=== PATIENT | male | born 2005 | race African-American/Black ===

== ENCOUNTER 2025-08-05 12:06 | Emergency (ER) | payer MEDICAID, SELFPAY ==
--- NOTE | ~2025-08-05 | XR_ITS ---
EXAMINATION: XR knee RT 3V, 08/05/2025 14:48 CDT HISTORY: trauma COMPARISON: No comparisons available. Findings: No acute fracture or malalignment. No significant degenerative changes. Soft tissues unremarkable. Impression: No acute fracture or malalignment. Reviewed, dictated and finalized at location P. Impression: No acute fracture or malalignment.
[2025-08-05 12:59] VITALS: BP 127/79; PULSE 69; RESP 16; TEMP 36.8; O2SAT 99
--- NOTE | 2025-08-05 14:41 | ED.LOWEXIN ---
HPI - Extremity Injury (Lower) General Chief Complaint: Extremity Injury, Lower Stated Complaint: R KNEE INJURY Time Seen by Provider: 08/05/25 14:21 History of Present Illness HPI Narrative: Pt was playing basketball yesterday and planted on right knee and it gave out. Pt felt pain on medial side of knee joint and has swelling to knee. Pt denies other injury. Related Data Allergies Allergy/AdvReac Type Severity Reaction Status Date / Time No Known Allergies Allergy Verified 08/05/25 12:59 Review of Systems Review of Systems: All systems reviewed & are unremarkable except as noted in HPI and below Exam Const: General: healthy appearing and no acute distress Nutritional Appearance: well nourished Orientation/consciousness: patient oriented x3 Limitations: no limitations Resp: Effort & Inspection: normal respiratory effort Auscultation: clear to auscultation bilaterally Cardio: Rate: regular rate Rhythm: regular rhythm GI: GI Palp: Yes Soft to palpation Auscultation: normal bowel sounds Skin: General skin exam: normal color Rashes: no rashes Wounds: no wounds Neuro: General: patient oriented x3, moves all extremities and no focal motor deficits Speech: normal speech Extrem: Other: swelling to right knee, tender along medial joint line but not mcl or lcl and no obvious instability though difficult to perform full exam due to pain Psych: Mental Status: mental status grossly normal Affect: normal affect Attitude: cooperative Course Vital Signs Vital signs: Vital Signs Temperature 98.2 F 08/05/25 12:59 Pulse Rate 69 08/05/25 12:59 Respiratory Rate 16 08/05/25 12:59 Blood Pressure 127/79 08/05/25 12:59 Pulse Oximetry 99 08/05/25 12:59 Oxygen Delivery Room Air 08/05/25 12:59 Temperature 98.2 F 08/05/25 12:59 Pulse Rate 69 08/05/25 12:59 Respiratory Rate 16 08/05/25 12:59 Blood Pressure 127/79 08/05/25 12:59 Pulse Oximetry 99 08/05/25 12:59 Oxygen Delivery Room Air 08/05/25 12:59 MDM - Extremity Injury (Lower) MDM Narrative Medical decision making narrative: will get x ray to rule out fx. if neg will send home on crtuches and have ortho follow up. no fx noted. Differential Diagnosis Differential diagnosis: Likely acute internal derangement of knee and other (medial meniscal injury, tibial plateau fx) Imaging Data Attestation: I personally reviewed and interpreted this imaging study as follows: My impression: no fx Radiologist's impression: [place] [id number] [place], [place] [id number] XRay Report Signed Patient: Haley Sloan : 2005 MR#: [id number] Age: 20 Acct:[id number] Loc: [facility] ADM Date: 08/05/[address]: Ordering Physician: Betty Barr III, DO Date of Service: 08/05/25 Procedure(s): XR knee RT 3V Accession Number(s): [id number] cc: Betty Barr III, ~ EXAMINATION: XR knee RT 3V, 08/05/2025 14:48 CDT HISTORY: trauma COMPARISON: No comparisons available. Findings: No acute fracture or malalignment. No significant degenerative changes. Soft tissues unremarkable. Impression: No acute fracture or malalignment. Reviewed, dictated and finalized at location P. Please be advised this is a medical document. It is intended for [id number] communication. It is written in medical language and may contain unfamiliar abbreviations or verbiage. Medical documents are intended to carry relevant information, facts as evident, and the clinical opinion of the practitioner at the time of the encounter. This report may have been done utilizing a voice recognition system. Attempts have been made to correct errors. However, there may be uncorrected grammatical, spelling, and recognition errors present. The file time of this note does not necessarily represent the time of service. Dictated By: Trace Kirkland MD 08/05/25 1456 Signed By: <Electronically signed by Trace Kirkland MD in OV> 08/05/251455 Discharge Plan Discharge Clinical Impression: Acute internal derangement of knee Patient Disposition: Home Condition: Stable Instructions: Antibiotic Form, Swollen Knee Joint (ED), Knee Pain (ED) Patient Language: Greek Prescriptions: New naproxen [Naprosyn] 500 mg tablet 500 mg PO BID Qty: 20 0RF Follow-up/Referrals: Eduardo Rodriguez MD [Physician, Orthopedics] UNKNOWN,DOCTOR [Primary Care Provider]
--- OUTSIDE RECORDS SUMMARY | 2025-08-05 17:15 | XMS_ITS | Clinical Summary ---
Author Organization [facility] Health Address [address] [place] [address] Care Team Providers Care Staff Air Tactical Officer Name Role Phone Katina Pineda MD Primary Care Provider [phone] Katina Pineda MD Unavailable [phone] Karol Pinedo MD Unavailable Source Comments [facility] [employer],non-owned Affiliates and Associated Physician Practices is amultiple site organization consisting of ambulatory clinics and hospital sitesin [place], [place], [place] and [place]. This disclosure is being madepursuant to the Care Everywhere program and may not contain all information available regarding this patient. Last updated 18.[facility] Allergies No known active allergies Medications * Be aware that medications may not be up to date on this document. Alwaysverify current medications with the patient. 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 [employer] Gender Identity Not on file Sexual Orientation Not on file Last Filed Vital Signs Vital Sign Reading Time Taken Comments Blood Pressure 110/64 04/19/2020 3:10 PM CDT Pulse 84 04/19/2020 3:10 PM CDT Temperature 36.4 C (97.6 F) 10/14/2023 6:48 PM WOMEN'S MINISTRY DIRECTOR Respiratory Rate 18 10/14/2023 6:48 PM WOMEN'S MINISTRY DIRECTOR Oxygen Saturation 99% 04/19/2020 3:10 PM CDT Inhaled Oxygen Concentration - - Weight 66.3 kg (146 lb 2.6 oz) 04/19/2020 3:10 P M CDT Height 172.7 cm (5' 8) 10/14/2023 6:48 PM WOMEN'S MINISTRY DIRECTOR Body Mass Index 22.67 04/19/2020 3:10 PM CDT Plan of Treatment Health Maintenance Due Date Last Done Comments HIV SCREENING 2019 HPV VACCINE (1 - Male 3-dose series) 2019 MENINGOCOCCAL (Group B) VACCINE SHARED DECISION-MAKING (1 of 2 - Standard) 2020 HEPATITIS C SCREENING 07/10/2022 DTAP/TDAP/TD VACCINES (1 - Tdap) 2023 HEPATITIS B VACCINE (1 of 3 - 19+ 3-dose series) 2023 DEPRESSION SCREENING 10/21/2024 COVID-19 VACCINE (3 - 2024-2 6 season) 2025 07/08/2021, 06/06/2021 INFLUENZA VACCINE (#1) 2025 , 11/14/2007 ZOSTER VACCINE (1 of 2) 2054 HIB VACCINE Aged Out No longer eligi ble based on patient's age to complete this topic MENINGOCOCCAL GROUPS A/C/Y/W VACCINE Aged Out No longer eligible b ased on patient's age to complete this topic PNEUMOCOCCAL VACCINE Aged Out No long er eligible based on patient's age to complete this topic Insurance [facility]ICA [facility] [employer]ICA [facility] [employer]ICA [facility] Care Teams Staff Air Tactical Officer Relationship Specialty Start Date End Date Katina Pineda MD PCP - General 04/20/20 Karol Pinedo MD [address] [place] [address] PCP - Attributed-[employer] [facility] 10/21/23 Katina Pineda MD Pediatrics 04/20/20
== END 2025-08-05 15:21 | disposition home or self-care (01) ==
LOC: ANHED 15:08
PROVIDERS: Emergency Provider Emergency Medicine
DX: M23.91 Unspecified internal derangement of right knee (principal); S89.91XA Unspecified injury of right lower leg, initial encounter; X50.9XXA Other and unspecified overexertion or strenuous movements or postures, initial encounter; Y93.67 Activity, basketball
CPT/HCPCS: 73562; 99283